=== PATIENT | female | born 1955 | race Two or more races ===

== ENCOUNTER 2022-06-16 14:05 | Emergency (ER) | payer OTHER ==
[~2022-06-16] VITALS: Ht 165.1 cm; Wt 47.6 kg
[2022-06-16] MEDS ORDERED: LIPITOR40 M1 (14:23)
[2022-06-16] MEDS ORDERED: MAGNESIUM200 MG (14:24)
[2022-06-16] MEDS ORDERED: PROLIA60 MG/1 ML (14:26)
== END 2022-06-16 17:29 | disposition home or self-care (01) ==
LOC: ER 14:05
DX: J32.9 Chronic sinusitis, unspecified (principal); Z88.0 Allergy status to penicillin